=== PATIENT | female | born 1940 | race Caucasian/White ===

== ENCOUNTER 2016-04-14 09:25 | Outpatient (RCR) | payer OTHER ==
[~2016-04-14] VITALS: Ht 154.9 cm; Wt 67.6 kg
[2016-04-14 10:03] VITALS: BP 178/72
[2016-04-14 12:19] VITALS: BP 178/72
[2016-04-14 12:25] VITALS: BP 178/72
== END 2016-07-13 | disposition home or self-care (01) ==
LOC: LAB 09:25 → SDC 09:25 → EDSTATUS 04-15 07:32
PROVIDERS: ATTEND Family Medicine
DX: D64.9 Anemia, unspecified (principal)
CPT/HCPCS: 36415; 82274; 85025

== ENCOUNTER 2016-04-14 09:47 | Outpatient (RCR) | payer OTHER ==
[2016-04-13 15:48] VITALS: BP 153/68
[2016-04-13 17:20] VITALS: BP 153/68
[2016-04-13 17:35] VITALS: BP 168/69
[2016-04-13 19:15] VITALS: BP 175/62
[~2016-04-14] VITALS: Ht 154.9 cm; Wt 67.6 kg
[~2016-04-14 09:47] MED LIST: ACETAMINOPHEN 325 MG TABLET/CAPLET (TYLENOL) ONE; ACETAMINOPHEN 325 MG TABLET/CAPLET (TYLENOL) PO ONE; NS IV 500 ML 500 ML IV ONE; NS IV 500 ML 500 ML ONE; diphenhydrAMINE 25 MG TAB (BENADRYL) PO ONE
[2016-04-14 11:43] LABS: BASOPHILS % (AUTO) 1 % (0-10); EOSINOPHILS # (AUTO) 0.3 10^3/uL (0.0-0.3); EOSINOPHILS % (AUTO) 4 % (0-10); LYMPHOCYTES # (AUTO) 1.6 X 10^3 (1.0-4.0); LYMPHOCYTES % (AUTO) 24 % (12-44); MEAN CORPUSCULAR HEMOGLOBIN 22 PG (25-34); MEAN CORPUSCULAR HGB CONC 30 G/DL (32-36); MEAN CORPUSCULAR VOLUME 74 FL (80-99); MEAN PLATELET VOLUME 8.9 FL (7.4-10.4); MONOCYTES # (AUTO) 0.8 X 10^3 (0.0-1.0); MONOCYTES % (AUTO) 12 % (0-12); NEUTROPHILS # (AUTO) 4.1 X 10^3 (1.8-7.8); NEUTROPHILS % (AUTO) 60 % (42-75); PLATELET COUNT 391 10^3/uL (130-400); RED BLOOD COUNT 3.92 10^6/uL (4.35-5.85); RED CELL DISTRIBUTION WIDTH 20.9 % (10.0-14.5); WHITE BLOOD COUNT 6.8 10^3/uL (4.3-11.0)
== END 2016-07-12 | disposition home or self-care (01) ==
LOC: SDC 09:47
PROVIDERS: ATTEND Family Medicine
DX: D64.9 Anemia, unspecified (principal)
CPT/HCPCS: 36415; 36430; 85025; 86850; 86900; 86901; 86920

== ENCOUNTER → 2020-10-31 | Outpatient (CLI) | payer OTHER | LOC: CANPRECLI → LABNPT 05:42 | PROVIDERS: ATTEND Family Medicine | DX: Z53.9 Procedure and treatment not carried out, unspecified reason (principal) ==

== ENCOUNTER → 2020-11-03 | Outpatient (CLI) | payer MEDICARE, OTHER | LOC: LABNPT 07:58 | PROVIDERS: ATTEND Internal Medicine Gastroenterology | DX: Z01.812 Encounter for preprocedural laboratory examination (principal); Z20.822 Contact with and (suspected) exposure to COVID-19 | CPT/HCPCS: 87635 ==

== ENCOUNTER → 2020-11-25 | Outpatient (CLI) | payer MEDICARE, OTHER ==
--- NOTE | 2020-11-25 11:12 | Diagnostic Imaging Report ---
INDICATION: 80-year-old postmenopausal female. COMPARISON: None FINDINGS: AP Spine L1-L4: [BMD (g/cm2): 1.190] [T-Score: -0.1] [Z-Score: 1.8] [BMD Previous: NA] [BMD % Change: NA] LT Hip Neck: [BMD (g/cm2): 0.901] [T-Score: -1.0] [Z-Score: 1.2] LT Hip Total: [BMD (g/cm2):0.983] [T-Score:-0.2] [Z-Score: 1.8] [BMD Previous: NA] [BMD % Change: NA] RT Hip Neck: [BMD (g/cm2):0.978] [T-Score:-0.4] [Z-Score:1.7] RT Hip Total: [BMD (g/cm2):0.988] [T-score:-0.2] [Z-Score:1.9] [BMD Previous:NA] [BMD % Change:NA] *Indicates significant change from prior examination based on 95% confidence level. World Health Organization criteria for BMD interpretation classify patients as Normal (T-score at or above -1.0), Osteopenic (T-score between -1.0 and -2.5) or Osteoporotic (T-score at or below -2.5). LIMITATIONS AND MODIFICATION: None. IMPRESSION: 1. Normal bone mineral density. 2. Baseline examination. 3. See below National Osteoporosis Foundation guidelines on when to potentially initiate pharmacologic therapy. Based on the National Osteoporosis Foundation Guidelines, pharmacologic treatment should be initiated in any of the following, unless clinical conditions suggest otherwise: * Any patient with prior fragility fracture of the hip or vertebrae. A spine fracture indicates 5X risk for subsequent spine fracture and 2X risk for subsequent hip fracture. * Osteoporosis (T-score <-2.5). * Postmenopausal women and men age 50 and older with low bone mass/osteopenia (T-score between -1.0 and -2.5) by DXA and 10-year major osteoporotic fracture greater than 20% or a 10-year probability of hip fracture greater than 3%. These fracture risks are supplied above in the FRAX score, if applicable. * Clinician judgement and/or patient preferences may indicate treatment for people with 10-year fracture probabilities above or below these levels. Dictated by: Dictated on workstation # [id number]
== END ==
LOC: RAD 08:30
PROVIDERS: ATTEND Family Medicine
DX: S82.91XA Unspecified fracture of right lower leg, initial encounter for closed fracture (principal); Z78.0 Asymptomatic menopausal state
CPT/HCPCS: 77080

== ENCOUNTER → 2021-02-26 | Outpatient (CLI) | payer MEDICARE ==
[2021-02-26 10:49] LABS: HEMATOCRIT 39 % (35-52); HEMOGLOBIN 12.9 g/dL (11.5-16.0); MEAN CORPUSCULAR HEMOGLOBIN 33 pg (25-34); MEAN CORPUSCULAR HGB CONC 33 g/dL (32-36); MEAN CORPUSCULAR VOLUME 100 fL (80-99); MEAN PLATELET VOLUME 8.9 fL (9.0-12.2); PLATELET COUNT 242 10^3/uL (130-400)
--- NOTE | 2021-02-26 11:58 | Diagnostic Imaging Report ---
Indication: Right leg pain. TIME OF EXAM: 10:57 AM No prior studies are available for comparison. There is intramedullary mauro transfixing a midshaft tibial fracture. Fracture line does remain partly visible may be secondary to incomplete healing. The mauro does extend through the ankle joint into the talus and calcaneus. There are proximal and distal screws. The distal fibula has been resected. Alignment at the knee and ankle appears normal. IMPRESSION: Postsurgical changes. There is some residual of fracture line present in the mid shaft of the tibia consistent with incomplete healing. No other significant abnormality is seen. Dictated by: Dictated on workstation # [id number]
== END ==
LOC: RAD 10:20
PROVIDERS: ATTEND Family Medicine
DX: S82.291A Other fracture of shaft of right tibia, initial encounter for closed fracture (principal); D64.9 Anemia, unspecified; Z98.890 Other specified postprocedural states; X58.XXXA Exposure to other specified factors, initial encounter
CPT/HCPCS: 36415; 73590; 85027

== ENCOUNTER 2022-06-21 06:51 | Observation (INO) | payer MEDICARE ==
[~2022-06-21] VITALS: Ht 154 cm; Wt 24.5 kg
--- NOTE | 2022-06-21 07:18 | ED Abdominal Pain ---
General Chief Complaint: Abdominal/GI Problems Stated Complaint: ABD PAIN Nursing Triage Note: ARRIVED VIA WC WITH COMPLAINTS OF LOWER ABD PAIN RELATED TO A HERNIA. History of Present Illness Date Seen by Provider: Jun 21, 2022 Time Seen by Provider: 07:16 Initial Comments 81-year-old female with PMH of thyroid disorder/hiatal hernia/abdominal hernia/HTN, is here with complaints of left lower quadrant pain and swelling which extends into her pelvic area. Patient states that the pain started about 2 to 3 days ago and has been worsening, and the hernia swelling has gotten a little bit bigger. Today patient noticed that she is able to urinate but had as to push to get the urine out. Denies fever, hematuria, diarrhea, constipation, fever. Patient's last meal was yesterday night dinnertime, she had soup. Allergies and Home Medications Allergies Coded Allergies: No Known Drug Allergies (Unverified , 04/13/16) Patient Home Medication List Home Medication List Reviewed: Yes No Active Prescriptions or Reported Meds Review of Systems Review of Systems Constitutional: no symptoms reported EENTM: No Symptoms Reported Respiratory: No Symptoms Reported Cardiovascular: No Symptoms Reported Gastrointestinal: Abdomen Distended, Abdominal Pain, Nausea Genitourinary: No Symptoms Reported Musculoskeletal: no symptoms reported Skin: no symptoms reported Psychiatric/Neurological: No Symptoms Reported Endocrine: No Symptoms Reported Hematologic/Lymphatic: No Symptoms Reported Past Jvntalr-Bnocyb-Eanhhf Hx Patient Social History Tobacco Use?: No Substance use?: No Alcohol Use?: No Immunizations Up To Date Tetanus Booster (TDap): Unknown Seasonal Allergies Seasonal Allergies: No Past Medical History Surgeries: Yes Appendectomy, Orthopedic Respiratory: No Cardiac: Yes High Cholesterol, Hypertension Neurological: No Genitourinary: No Gastrointestinal: Yes Abdominal Hernia Musculoskeletal: Yes Fractures Endocrine: No HEENT: No Cancer: No Psychosocial: No Integumentary: No Blood Disorders: No Family Medical History Other Conditions/Hx Physical Exam Vital Signs Vital Signs - First Documented 06/21/22 06:56 Temp 36.1 Pulse 71 Resp 16 B/P (MAP) 122/75 (91) Pulse Ox 98 O2 Delivery Room Air Capillary Refill : Less Than 3 Seconds Height/Weight/BMI Height: 5'1.00" Weight: 149lbs. 0.0oz. 67.913944hs; 24.00 BMI Method: General Appearance: WD/WN, no apparent distress HEENT: PERRL/EOMI, normal ENT inspection Neck: non-tender, full range of motion, supple Respiratory: chest non-tender, lungs clear, normal breath sounds, no respiratory distress Cardiovascular: regular rate, rhythm, no edema Gastrointestinal: normal bowel sounds, soft, tenderness (Tenderness in the elbow acute which extends into the pelvic area), mass (Mass in the LL Q with an even larger mass in the pelvic area which appears to be a continuation. Mass is large, soft, tender) Back: no CVA tenderness Male: other Neurologic/Psychiatric: alert, normal mood/affect, oriented x 3 Skin: normal color Lymphatic: no adenopathy Focused Exam Lactate Level 06/21/22 08:08: Lactic Acid Level 0.90 Lactic Acid Level Laboratory Tests Test 06/21/22 08:08 Lactic Acid Level 0.90 MMOL/L (0.50-2.00) Progress/Results/Core Measures Results/Orders Lab Results Laboratory Tests Test 06/21/22 08:08 06/21/22 08:35 Range/Units White Blood Count 10.2 4.3-11.0 10^3/uL Red Blood Count 4.30 3.80-5.11 10^6/uL Hemoglobin 13.4 11.5-16.0 g/dL Hematocrit 40 35-52 % Mean Corpuscular Volume 94 80-99 fL Mean Corpuscular Hemoglobin 31 25-34 pg Mean Corpuscular Hemoglobin Concent 33 32-36 g/dL Red Cell Distribution Width 13.2 10.0-14.5 % Platelet Count 287 130-400 10^3/uL Mean Platelet Volume 8.9 L 9.0-12.2 fL Immature Granulocyte % (Auto) 0 % Neutrophils (%) (Auto) 77 H 42-75 % Lymphocytes (%) (Auto) 15 12-44 % Monocytes (%) (Auto) 8 0-12 % Eosinophils (%) (Auto) 0 0-10 % Basophils (%) (Auto) 0 0-10 % Neutrophils # (Auto) 7.8 1.8-7.8 10^3/uL Lymphocytes # (Auto) 1.5 1.0-4.0 10^3/uL Monocytes # (Auto) 0.8 0.0-1.0 10^3/uL Eosinophils # (Auto) 0.0 0.0-0.3 10^3/uL Basophils # (Auto) 0.0 0.0-0.1 10^3/uL Immature Granulocyte # (Auto) 0.0 0.0-0.1 10^3/uL Sodium Level 136 135-145 MMOL/L Potassium Level 3.6 3.6-5.0 MMOL/L Chloride Level 100 98-107 MMOL/L Carbon Dioxide Level 26 21-32 MMOL/L Anion Gap 10 5-14 MMOL/L Blood Urea Nitrogen 19 H 7-18 MG/DL Creatinine 0.72 0.60-1.30 MG/DL Estimat Glomerular Filtration Rate 84 BUN/Creatinine Ratio 26 Glucose Level 110 H 70-105 MG/DL Lactic Acid Level 0.90 0.50-2.00 MMOL/L Calcium Level 10.6 H 8.5-10.1 MG/DL Corrected Calcium 10.6 H 8.5-10.1 MG/DL Magnesium Level 1.7 1.6-2.4 MG/DL Total Bilirubin 0.6 0.1-1.0 MG/DL Aspartate Amino Transf (AST/SGOT) 13 5-34 U/L Alanine Aminotransferase (ALT/SGPT) 15 0-55 U/L Alkaline Phosphatase 77 40-136 U/L Total Protein 6.6 6.4-8.2 GM/DL Albumin 4.0 3.2-4.5 GM/DL Lipase 14 8-78 U/L Urine Color YELLOW Urine Clarity CLEAR Urine pH 6.0 5-9 Urine Specific [place] 1.025 H 1.016-1.022 Urine Protein NEGATIVE NEGATIVE Urine Glucose (UA) NEGATIVE NEGATIVE Urine Ketones 1+ H NEGATIVE Urine Nitrite NEGATIVE NEGATIVE Urine Bilirubin 1+ H NEGATIVE Urine Urobilinogen 0.2 < = 1.0 MG/DL Urine Leukocyte Esterase 1+ H NEGATIVE Urine RBC (Auto) NEGATIVE NEGATIVE Urine RBC NONE /HPF Urine WBC 2-5 /HPF Urine Squamous Epithelial Cells 2-5 /HPF Urine Crystals PRESENT H /LPF Urine Amorphous Sediment RARE STEPHANIE URATES H /LPF Urine Bacteria FEW H /HPF Urine Casts PRESENT /LPF Urine Hyaline Casts 2-5 H /LPF Urine Mucus SMALL H /LPF Urine Culture Indicated YES My Orders Orders - GEMMA PARKS MD Ondansetron Injection (Zofran Injectio (06/21/22 07:30) Cbc With Automated Diff (06/21/22 07:24) Comprehensive Metabolic Panel (06/21/22 07:24) Lactic Acid Analyzer (06/21/22 07:24) Lipase (06/21/22 07:24) Magnesium (06/21/22 07:24) Ua Culture If Indicated (06/21/22 07:24) Ed Iv/Invasive Line Start (06/21/22 07:24) Ns Iv 1000 Ml (Sodium Chloride 0.9%) (06/21/22 07:24) Ct Abdomen/Pelvis W (06/21/22 07:25) Fentanyl Inj (Sublimaze Injection) (06/21/22 08:45) Iohexol Injection (Omnipaque 350 Mg/Ml 1 (06/21/22 09:00) Received Contrast (Hold Metformin- Contr (06/21/22 09:00) Sodium Chloride Flush (Catheter Flush Sy (06/21/22 09:00) Ns (Ivpb) (Sodium Chloride 0.9% Ivpb Bag (06/21/22 09:00) Urine Culture (06/21/22 08:35) Medications Given in ED Current Medications Medications Dose Ordered Sig/[place] Route Start Time Stop Time Status Last Admin Dose Admin Fentanyl Citrate 50 mcg ONCE ONCE IVP 06/21/22 08:45 06/21/22 08:46 DC 06/21/22 08:48 50 MCG Iohexol 100 ml ONCE ONCE IV 06/21/22 09:00 06/21/22 09:01 DC 06/21/22 09:15 67 ML Ondansetron HCl 4 mg ONCE ONCE IVP 06/21/22 07:30 06/21/22 07:31 DC 06/21/22 07:52 4 MG Sodium Chloride 10 ml NEEDED PRN IV 06/21/22 09:00 06/21/22 09:15 10 ML Sodium Chloride 100 ml ONCE ONCE IV 06/21/22 09:00 06/21/22 09:01 DC 06/21/22 09:15 80 ML Vital Signs/I&O 06/21/22 06:56 Temp 36.1 Pulse 71 Resp 16 B/P (MAP) 122/75 (91) Pulse Ox 98 O2 Delivery Room Air Blood Pressure Mean: 91 Progress Progress Note : Progress Note 1. SMALL BOWEL OBSTRUCTION: -CT ABD: - Labs unremarkable - Fentanyl 50mcg STAT - Zofran 4mg iv - IVF -NPO -We will admit to surgery, discussed with Dr. Bernal and Dr RON 2. AUTE CYSTITIS: - UA is positive for LE/ bacteria - Ceftriaxone 1g, iv STAT - NS IVF Diagnostic Imaging Diagonstic Imaging: CT Plain Films/CT/US/NM/MRI: abdomen Comments [facility]. [place], [place] NAME: DEBBIE ESPAÑA [facility] REC#: [id number] PT STATUS: REG ER : 1940 PHYSICIAN: GEMMA PARKS MD ADMIT DATE: 06/21/22/ER Draft Date of Exam:06/21/22 CT ABDOMEN/PELVIS W PROCEDURE: CT abdomen and pelvis with contrast. TECHNIQUE: Multiple contiguous axial images were obtained through the abdomen and pelvis after administration of intravenous contrast. Auto Exposure Controls were utilized during the CT exam to meet ALARA standards for radiation dose reduction. All CT scans use one or more of the following dose optimizing techniques: automated exposure control, MA and/or KvP adjustment based on patient size and exam type or iterative reconstruction. INDICATION: Lower abdominal pain. Comparison is made with prior CT from 07/20/2020. Imaging through the lung bases demonstrates a very large hiatal hernia. The liver and gallbladder are unremarkable. There is no biliary ductal dilatation. No liver mass is detected. The pancreas and spleen are unremarkable. No adrenal mass is identified. The kidneys contain low-attenuation lesions consistent with cysts. There is a large left lower quadrant hernia containing small and large bowel loops. The small bowel loops do appear to be dilated and fluid-filled and findings are concerning for at least partial small bowel obstruction. No bowel wall thickening or pneumatosis is seen. There is no discrete fluid collection. Aorta is nonaneurysmal. The uterus contains large calcified fibroid. Bladder is unremarkable. IMPRESSION: 1. Large left inguinal hernia containing small and large bowel loops. Small bowel does appear to be dilated and fluid-filled and features are concerning for small bowel obstruction. No definite strangulation is seen. There is no abscess formation identified. 2. Bilateral renal cysts. 3. Large hiatal hernia. Dictated on workstation # [id number] Dict: 06/21/2238 Trans: 06/21/22 0948 [facility] [id number] Interpreted by: CHRISTIN MCCARTHY MD Electronically signed by: Departure Communication (Admissions) Time/Spoke to Admitting Phy: 10:[address] Powers and accepted to surgery Impression Primary Impression: Small bowel obstruction Additional Impression: Acute cystitis Qualified Codes: N30.00 - Acute cystitis without hematuria Disposition: 30 STILL A PATIENT Condition: Stable Admissions Decision to Admit Reason: Admit from ER (General) Decision to Admit/Date: Jun 21, 2022 Time/Decision to Admit Time: 10:00 Departure-Patient Inst. Referrals: JACKLYN GUALLPA DO (PCP/Family) Primary Care Physician Scripts No Active Prescriptions or Reported Meds GEMMA PARKS MD Jun 21, 2022 07:18
[2022-06-21] MEDS ORDERED: NS IV 1000 ML 1,000 ML IV STA (07:24)
[2022-06-21] MEDS ORDERED: ONDANSETRON 4 MG/2 ML (SDV) Z0FRAN IVP ONE (07:30)
[2022-06-21 08:22] LABS: BASOPHILS % (AUTO) 0 % (0-10); EOSINOPHILS % (AUTO) 0 % (0-10); HEMATOCRIT 40 % (35-52); HEMOGLOBIN 13.4 g/dL (11.5-16.0); LYMPHOCYTES # (AUTO) 1.5 10^3/uL (1.0-4.0); LYMPHOCYTES % (AUTO) 15 % (12-44); MEAN CORPUSCULAR HEMOGLOBIN 31 pg (25-34); MEAN CORPUSCULAR HGB CONC 33 g/dL (32-36); MEAN CORPUSCULAR VOLUME 94 fL (80-99); MEAN PLATELET VOLUME 8.9 fL (9.0-12.2); MONOCYTES # (AUTO) 0.8 10^3/uL (0.0-1.0); MONOCYTES % (AUTO) 8 % (0-12); NEUTROPHILS # (AUTO) 7.8 10^3/uL (1.8-7.8); NEUTROPHILS % (AUTO) 77 % (42-75); PLATELET COUNT 287 10^3/uL (130-400); WHITE BLOOD COUNT 10.2 10^3/uL (4.3-11.0)
[2022-06-21 08:40] LABS: BILIRUBIN,TOTAL 0.6 MG/DL (0.1-1.0); CALCIUM 10.6 MG/DL (8.5-10.1); CREATININE SERUM 0.72 MG/DL (0.60-1.30); MAGNESIUM 1.7 MG/DL (1.6-2.4); POTASSIUM 3.6 MMOL/L (3.6-5.0); TOTAL PROTEIN 6.6 GM/DL (6.4-8.2)
[2022-06-21 08:41] LABS: CLARITY,URINE CLEAR; COLOR,URINE YELLOW; GLUCOSE, URINE (UA) NEGATIVE (NEGATIVE); KETONES,URINE 1+ (NEGATIVE); LEUKOCYTE ESTERASE ,URINE 1+ (NEGATIVE); NITRITE,URINE NEGATIVE (NEGATIVE); PROTEIN,URINE NEGATIVE (NEGATIVE)
[2022-06-21] MEDS ORDERED: fentaNYL INJ 100 MCG/2 ML AMP IVP ONE (08:45)
[2022-06-21] MEDS ORDERED: IOHEXOL 350 MG/ML 100 ML (OMNIPAQUE 350) VIAL IV ONE (09:00)
[2022-06-21] MEDS ORDERED: NS 100 ML (IVPB) BAG IV ONE (09:00)
[2022-06-21] MEDS ORDERED: CATHETER FLUSH 10 ML SYR IV PRN ×2 (09:00→12:00)
[2022-06-21] MEDS ORDERED: HOLD METFORMIN - RECEIVED CONTRAST 20 ML VIAL IV SCH (09:00)
[2022-06-21 09:33] LABS: BACTERIA,URINE FEW /HPF; BILIRUBIN,URINE 1+ (NEGATIVE)
[2022-06-21 09:34] LABS: AMORPHOUS SEDIMENT,UR RARE AMOR URATES /LPF
--- NOTE | 2022-06-21 09:48 | Diagnostic Imaging Report ---
PROCEDURE: CT abdomen and pelvis with contrast. TECHNIQUE: Multiple contiguous axial images were obtained through the abdomen and pelvis after administration of intravenous contrast. Auto Exposure Controls were utilized during the CT exam to meet ALARA standards for radiation dose reduction. All CT scans use one or more of the following dose optimizing techniques: automated exposure control, MA and/or KvP adjustment based on patient size and exam type or iterative reconstruction. INDICATION: Lower abdominal pain. Comparison is made with prior CT from 07/20/2020. Imaging through the lung bases demonstrates a very large hiatal hernia. The liver and gallbladder are unremarkable. There is no biliary ductal dilatation. No liver mass is detected. The pancreas and spleen are unremarkable. No adrenal mass is identified. The kidneys contain low-attenuation lesions consistent with cysts. There is a large left lower quadrant hernia containing small and large bowel loops. The small bowel loops do appear to be dilated and fluid-filled and findings are concerning for at least partial small bowel obstruction. No bowel wall thickening or pneumatosis is seen. There is no discrete fluid collection. Aorta is nonaneurysmal. The uterus contains large calcified fibroid. Bladder is unremarkable. IMPRESSION: 1. Large left inguinal hernia containing small and large bowel loops. Small bowel does appear to be dilated and fluid-filled and features are concerning for small bowel obstruction. No definite strangulation is seen. There is no abscess formation identified. 2. Bilateral renal cysts. 3. Large hiatal hernia. Dictated by: Dictated on workstation # [id number]
[2022-06-21] MEDS ORDERED: cefTRIAXone 1 GM PRE-MIX 50 ML IV STA (10:15)
[2022-06-21 11:42] VITALS: BP 160/87
[2022-06-21] MEDS ORDERED: KETOROLAC 15 MG/ML VIAL IVP PRN (12:00)
[2022-06-21] MEDS ORDERED: ONDANSETRON 4 MG/2 ML (SDV) Z0FRAN IVP PRN (12:00)
[2022-06-21 12:17] VITALS: BP 160/87
--- NOTE | 2022-06-21 12:39 | Consultation - Surgery ---
ALFREDOSINTIA Britton 06/21/22 1239: History of Present Illness History of Present Illness Patient Consulted On(konstantin/time) 06/21/22 12:34 Date Seen by Provider: Jun 21, 2022 Time Seen by Provider: 10:45 History of Present Illness 81 yo F with h/o umbilical hernia surgery, GI bleed, HTN, and RA was admitted after presenting to the ED with new onset epigastric abd pain with radiation to L lumbar with associated nausea and vomiting that started ~3 days ago. Pt states that 3 days ago, she experienced sudden onset of diffuse, constant, 6/10 abd pain. Pt also notes associated nausea and vomiting that started yesterday, stating that she vomited once and then was dry heaving. Pt states she took tylenol (1 tab) and tramadol and had no relief, prompting her to come to the ED. In ED, pt had a UA showing bacteria and a CT abd/pelvis that showed a large left inguinal hernia containing small and large bowel loops as well as dilated and fluid filled loops of small bowel that was concerning for small bowel obstruction. In room, pt resting in bed comfortably with daughter at bedside. Pt rates her pain a 6/10 at rest and a 10/10 when laying flat on her back or with movement. Pt states that she feels like her hernia feels more swollen today, but denies any redness to the area. Pt states that her last BM was 3 days ago prior to the onset of her symptoms. Pt states that it was normal and denies any blood or melena. Pt does state that she did continue to have a small amount of flatus up until yesterday. Pt notes that she has been feeling more weak since the beginning of her symptoms. Pt otherwise has no complaints. Pt's last colonoscopy and EGD was Aug in [place] following a GI bleed. Pt states that it was "normal". Pt also states that she had a capsule endoscopy at that time. Pt states that her inguinal hernia has been present since 2020 and was told it was inoperative. Pt's last meal was yesterday evening. Pt denies abd distention, CP, SOB, diarrhea, cough, lightheadedness, FIGUEROA, hematuria, cough ground emesis or hematemesis. Allergies and Home Medications Allergies Coded Allergies: No Known Drug Allergies (Unverified , 04/13/16) Patient Home Medication List Home Medication List Reviewed: Yes (Levothyroxine 100mcg, Amlodipine 5mg, Diclofenac 50mg BID, Tramadol 50mgBID) No Active Prescriptions or Reported Meds Past Uzgmdrq-Sohzqx-Tzkfsp Hx Patient Social History Drug of Choice: Denies Drug use Smoking Status: Former Smoker Recent Hopitalizations: No Alcohol Use?: No Have you traveled recently?: No Immunizations Up To Date Tetanus Booster (TDap): Unknown Seasonal Allergies Seasonal Allergies: No Surgeries History of Surgeries: Yes Surgeries: Abdominal (umbilical hernia repair), Appendectomy, Orthopedic Respiratory History of Respiratory Disorde: No Cardiovascular History of Cardiac Disorders: Yes Cardiac Disorders: High Cholesterol, Hypertension Neurological History of Neurological Disord: No Genitourinary History of Genitourinary Disor: No Gastrointestinal History of Gastrointestinal Di: Yes Gastrointestinal Disorders: Abdominal Hernia (large left inguinal), Gastrointestinal Bleed Musculoskeletal History of Musculoskeletal Dis: Yes Musculoskeletal Disorders: Rheumatoid Arthritis, Fractures Endocrine History of Endocrine Disorders: Yes Endocrine Disorders: Hypothyroidsim HEENT History of HEENT Disorders: No Cancer History of Cancer: No Psychosocial History of Psychiatric Problem: No Integumentary History of Skin or Integumenta: No Blood Transfusions History of Blood Disorders: No Family Medical History Significant Family History: Cancer (brother: lung cx; sister: endometrial with mets to kidney), Hypertension (mother), Other Conditions/Hx (RA-mother) Review of Systems-General Constitutional: No chills, No diaphoresis EENTM: No ear discharge, No ear pain Respiratory: No cough, No dyspnea on exertion, No short of breath Cardiovascular: No chest pain, No edema Gastrointestinal: abdominal pain (diffuse); No hematemesis, No melena; nausea, vomiting Genitourinary: No decreased output, No discharge Musculoskeletal: back pain (radiation from abd ); No neck pain Skin: No change in color, No change in hair/nails Psychiatric/Neurological: Denies Anxiety, Denies Depressed Physical Exam-General Problems Physical Exam Vital Signs Vital Signs - First Documented 06/21/22 06:56 Temp 36.1 Pulse 71 Resp 16 B/P (MAP) 122/75 (91) Pulse Ox 98 O2 Delivery Room Air Capillary Refill : Less Than 3 Seconds General Appearance: WD/WN, no apparent distress HEENT: PERRL/EOMI Respiratory: lungs clear, normal breath sounds, no respiratory distress, no accessory muscle use Cardiovascular: regular rate, rhythm, no murmur Peripheral Pulses: 2+ Dorsalis Pedis (R), 2+ Left Dors-Pedis (L) Gastrointestinal: abnormal bowel sounds (hyperactive all quadrants), tenderness (diffuse), hernia (large left inguinal hernia) Back: No muscle spasm Extremities: no pedal edema, no calf tenderness Neurologic/Psychiatric: alert, oriented x 3 Skin: normal color, warm/dry Data Review Labs Laboratory Tests 06/21/22 08:08: White Blood Count 10.2, Red Blood Count 4.30, Hemoglobin 13.4, Hematocrit 40, Mean Corpuscular Volume 94, Mean Corpuscular Hemoglobin 31, Mean Corpuscular Hemoglobin Concent 33, Red Cell Distribution Width 13.2, Platelet Count 287, Mean Platelet Volume 8.9L, Immature Granulocyte % (Auto) 0, Neutrophils (%) (Auto) 77H, Lymphocytes (%) (Auto) 15, Monocytes (%) (Auto) 8, Eosinophils (%) (Auto) 0, Basophils (%) (Auto) 0, Neutrophils # (Auto) 7.8, Lymphocytes # (Auto) 1.5, Monocytes # (Auto) 0.8, Eosinophils # (Auto) 0.0, Basophils # (Auto) 0.0, Immature Granulocyte # (Auto) 0.0, Sodium Level 136, Potassium Level 3.6, Chloride Level 100, Carbon Dioxide Level 26, Anion Gap 10, Blood Urea Nitrogen 19H, Creatinine 0.72, Estimat Glomerular Filtration Rate 84, BUN/Creatinine Ratio 26, Glucose Level 110H, Lactic Acid Level 0.90, Calcium Level 10.6H, Corrected Calcium 10.6H, Magnesium Level 1.7, Total Bilirubin 0.6, Aspartate Amino Transf (AST/SGOT) 13, Alanine Aminotransferase (ALT/SGPT) 15, Alkaline Phosphatase 77, Total Protein 6.6, Albumin 4.0, Lipase 14 06/21/22 08:35: Urine Color YELLOW, Urine Clarity CLEAR, Urine pH 6.0, Urine Specific [place] 1.025H, Urine Protein NEGATIVE, Urine Glucose (UA) NEGATIVE, Urine Ketones 1+H, Urine Nitrite NEGATIVE, Urine Bilirubin 1+H, Urine Urobilinogen 0.2, Urine Leukocyte Esterase 1+H, Urine RBC (Auto) NEGATIVE, Urine RBC NONE, Urine WBC 2- 5, Urine Squamous Epithelial Cells 2-5, Urine Crystals PRESENTH, Urine Amorphous Sediment RARE STEPHANIE URATESH, Urine Bacteria FEWH, Urine Casts PRESENT, Urine Hyaline Casts 2-5H, Urine Mucus SMALLH, Urine Culture Indicated YES Radiology Date of Exam:06/21/22 CT ABDOMEN/PELVIS W PROCEDURE: CT abdomen and pelvis with contrast. TECHNIQUE: Multiple contiguous axial images were obtained through the abdomen and pelvis after administration of intravenous contrast. Auto Exposure Controls were utilized during the CT exam to meet ALARA standards for radiation dose reduction. All CT scans use one or more of the following dose optimizing techniques: automated exposure control, MA and/or KvP adjustment based on patient size and exam type or iterative reconstruction. INDICATION: Lower abdominal pain. Comparison is made with prior CT from 07/20/2020. Imaging through the lung bases demonstrates a very large hiatal hernia. The liver and gallbladder are unremarkable. There is no biliary ductal dilatation. No liver mass is detected. The pancreas and spleen are unremarkable. No adrenal mass is identified. The kidneys contain low-attenuation lesions consistent with cysts. There is a large left lower quadrant hernia containing small and large bowel loops. The small bowel loops do appear to be dilated and fluid-filled and findings are concerning for at least partial small bowel obstruction. No bowel wall thickening or pneumatosis is seen. There is no discrete fluid collection. Aorta is nonaneurysmal. The uterus contains large calcified fibroid. Bladder is unremarkable. IMPRESSION: 1. Large left inguinal hernia containing small and large bowel loops. Small bowel does appear to be dilated and fluid-filled and features are concerning for small bowel obstruction. No definite strangulation is seen. There is no abscess formation identified. 2. Bilateral renal cysts. 3. Large hiatal hernia. Dictated on workstation # [id number] Dict: 06/21/22 0938 Trans: 06/21/22 0948 [facility] [id number] Interpreted by: CHRISTIN MCCARTHY MD Assessment/Plan Assessment/Plan Assessment/Plan 1. Epigastric pain with radiation to left lumbar 2. Nausea and vomiting 3. Large left inguinal hernia 3. h/o GI bleed 4. Acute cystitis Pt's pain seems to be well controlled on current pain medications. Pt has large incarcerated left inguinal hernia, pt is most likely not a surgical candidate. CT abd/pelvis was suspicious for SBO, would consider conservative management with IV fluids, anti-emetics prn, and pain medications prn. Would consider NG tube if needed for decompression. Continue IV abx. NICK ROSALIA SHEPARD DO 06/21/22 9390: History of Present Illness History of Present Illness Time Seen by Provider: 13:09 History of Present Illness Surgery asked to consult regarding PSBO. HPI per ED: 81-year-old female with PMH of thyroid disorder/hiatal hernia/abdominal hernia/HTN, is here with complaints of left lower quadrant pain and swelling which extends into her pelvic area. Patient states that the pain started about 2 to 3 days ago and has been worsening, and the hernia swelling has gotten a little bit bigger. Today patient noticed that she is able to urinate but had as to push to get the urine out. Denies fever, hematuria, diarrhea, constipation, fever. Patient's last meal was yesterday night dinnertime, she had soup. When I spoke to pt she states she has mild to moderate abdominal pain. She is lying in bed and does not appear to be in any distress. States she has never been told she had bowel obstruction before. She thinks she has had the hernia for at least 12 years. Allergies and Home Medications Allergies Coded Allergies: No Known Drug Allergies (Unverified , 04/13/16) Patient Home Medication List Home Medication List Reviewed: Yes (Levothyroxine 100mcg, Amlodipine 5mg, Diclofenac 50mg BID, Tramadol 50mgBID) No Active Prescriptions or Reported Meds Past Qsumrcl-Eenjjz-Cnycga Hx Patient Social History Smoking Status: Never a Smoker Alcohol Use?: No Surgeries History of Surgeries: Yes Surgeries: Abdominal (umbilical hernia repair), Appendectomy, Orthopedic Respiratory History of Respiratory Disorde: No Cardiovascular History of Cardiac Disorders: Yes Cardiac Disorders: Hypertension Neurological History of Neurological Disord: No Genitourinary History of Genitourinary Disor: No Gastrointestinal History of Gastrointestinal Di: Yes Gastrointestinal Disorders: Abdominal Hernia (large left inguinal), Gastrointestinal Bleed, Hiatal Hernia Musculoskeletal History of Musculoskeletal Dis: No Musculoskeletal Disorders: Rheumatoid Arthritis, Fractures Endocrine History of Endocrine Disorders: Yes Endocrine Disorders: Hypothyroidsim HEENT History of HEENT Disorders: No Cancer History of Cancer: No Psychosocial History of Psychiatric Problem: No Family Medical History Significant Family History: Cancer (brother: lung cx; sister: endometrial with mets to kidney), Hypertension (mother), Other Conditions/Hx (RA-mother) Review of Systems-General Constitutional: No chills, No diaphoresis EENTM: No ear discharge, No ear pain Respiratory: No cough, No dyspnea on exertion, No short of breath Cardiovascular: No chest pain, No edema Gastrointestinal: abdominal pain (diffuse); No hematemesis, No melena; nausea, vomiting Genitourinary: No decreased output, No discharge, No hematuria Musculoskeletal: back pain (radiation from abd ), joint pain, joint swelling; No neck pain Skin: No change in color, No change in hair/nails Psychiatric/Neurological: Denies Anxiety, Denies Depressed Physical Exam-General Problems Physical Exam General Appearance: WD/WN, no apparent distress Eyes: Bilateral Eye PERRL, Bilateral Eye EOMI HEENT: pharynx normal; No scleral icterus (R), No scleral icterus (L) Neck: non-tender, supple Respiratory: lungs clear, normal breath sounds, no respiratory distress, no accessory muscle use Cardiovascular: regular rate, rhythm, no murmur Peripheral Pulses: 2+ Dorsalis Pedis (R), 2+ Left Dors-Pedis (L) Gastrointestinal: soft, abnormal bowel sounds (hyperactive all quadrants), tenderness (diffuse), hernia (large left inguinal hernia, with another one (probably spigelian just above) and right inguinal hernia) Back: no CVA tenderness; No muscle spasm Extremities: no pedal edema, no calf tenderness, other (fingers have ulnar deviation) 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 PSBO vs Ileus 2. Large Incarcerated left inguinal hernia, with Spigelian hernia 3. Hiatal Hernia 4. Acute UTI 5. HTN Pt's pain seems to be under control on current pain medications. Pt has large incarcerated left inguinal hernia, that I was unable to reduce (even with gentle steady pressure and placing pt trendelenber). I reviewed the CT myself and noted bilateral inguinal hernia; left bigger than right with left spigelian hernia and large Hiatal hernia. Radiologist read CT abd/pelvis as suspicious for SBO. Pt looks very comfortable in no distress and would not carbajal her to surgery. In fact, I do not think she is a good surgical candidate. I think she has loss of domain in her abdomen and it would be hard to get intestine back in. In addition, I am not sure how to even repair the hernia because the defect is so big; very high chance of failure even with mesh. Therefore, will plan conservative management with IV fluids, anti-emetics prn, and pain medications prn. Would consider NG tube if needed for decompression. Continue IV abx for the UTI and keep NPO. Supervisory-Addendum Brief Verification & Attestation Participated in pt care: history, MDM, physical Personally performed: exam, history, MDM, supervision of care Care discussed with: Medical Student Procedures: n/a Verification and Attestation of Medical Student E/M Service A medical student performed and documented this service. I then reviewed and verified all information documented by the medical student and made modifications to such information, when appropriate. I personally performed a physical exam, medical decision making and then discussed any differences be tween the notes and made revisions as necessary to create one note. Rosalia Shepard , 06/21/22 , 13:59 SINTIA CARR Jun 21, 2022 12:39 ROSALIA SHEPARD DO Jun 21, 2022 13:50
[2022-06-21] MEDS: NS IV 1000 ML 1,000 ML IV SCH ×2 (14:09→21:06)
[2022-06-21] MEDS: CATHETER FLUSH 10 ML SYR IV SCH ×2 (14:10→21:02)
[2022-06-21] MEDS: fentaNYL INJ 100 MCG/2 ML AMP IVP PRN ×2 (14:10→23:28)
[2022-06-21] MEDS ORDERED: LEVO100T7 PO (15:51)
[2022-06-21] MEDS ORDERED: DICL50TA6 PO (15:51)
[2022-06-21] MEDS ORDERED: AMLO-250 PO (15:51)
[2022-06-21] MEDS ORDERED: MULT-1136 PO (15:51)
[2022-06-21] MEDS ORDERED: ROSU5TAB13 PO (15:51)
[2022-06-21] MEDS ORDERED: TRAM50TA3 PO (15:51)
[2022-06-21 16:12] VITALS: BP 122/59
[2022-06-21 19:47] VITALS: BP 125/75
[2022-06-21 23:49] VITALS: BP 110/58
[2022-06-22 04:00] VITALS: BP 127/59
[2022-06-22] MEDS: CATHETER FLUSH 10 ML SYR IV SCH (04:10)
[2022-06-22] MEDS: NS IV 1000 ML 1,000 ML IV SCH ×3 (04:57→11:25)
[2022-06-22 06:42] LABS: POTASSIUM 3.4 MMOL/L (3.6-5.0)
[2022-06-22 06:43] LABS: CALCIUM 8.4 MG/DL (8.5-10.1)
[2022-06-22 06:44] LABS: BASOPHILS # (AUTO) 0.1 10^3/uL (0.0-0.1); BASOPHILS % (AUTO) 1 % (0-10); EOSINOPHILS # (AUTO) 0.4 10^3/uL (0.0-0.3); EOSINOPHILS % (AUTO) 6 % (0-10); HEMATOCRIT 33 % (35-52); LYMPHOCYTES # (AUTO) 1.6 10^3/uL (1.0-4.0); LYMPHOCYTES % (AUTO) 28 % (12-44); MEAN CORPUSCULAR HEMOGLOBIN 31 pg (25-34); MEAN CORPUSCULAR HGB CONC 33 g/dL (32-36); MEAN CORPUSCULAR VOLUME 96 fL (80-99); MEAN PLATELET VOLUME 9.2 fL (9.0-12.2); MONOCYTES # (AUTO) 0.6 10^3/uL (0.0-1.0); MONOCYTES % (AUTO) 11 % (0-12); NEUTROPHILS # (AUTO) 3.1 10^3/uL (1.8-7.8); NEUTROPHILS % (AUTO) 54 % (42-75); PLATELET COUNT 239 10^3/uL (130-400); WHITE BLOOD COUNT 5.8 10^3/uL (4.3-11.0)
[2022-06-22 06:48] LABS: CREATININE SERUM 0.55 MG/DL (0.60-1.30)
[2022-06-22 06:50] LABS: HEMOGLOBIN 10.7 g/dL (11.5-16.0)
[2022-06-22 07:51] VITALS: BP 134/75
--- NOTE | 2022-06-22 09:33 | Progress Note - Surgery ---
REYMUNDORAFISINTIA Britton 06/22/22 0933: Subjective Date Seen by a Provider: Jun 22, 2022 Time Seen by a Provider: 07:45 Subjective/Events-last exam Pt is laying in bed comfortably. Pt states that she is currently having no abd pain today. Pt denies BM but does note that she has been having a lot of flatus. Pt notes that her abd distention feels like it improved today and is softer upon palpation. Pt denies ambulation except to the restroom. Pt has no complaints at this time. Does inquire about progressing diet and going home today. Pt denies nausea, vomiting, CP, SOB, chills, cough, leg swelling, FIGUEROA, lightheadedness, and hematuria. Review of Systems General: No Chills, No Night Sweats HEENT: No Head Aches, No Eye Pain Pulmonary: No Dyspnea, No Cough Cardiovascular: No: Chest Pain, Palpitations, Lt Headedness Gastrointestinal: No: Nausea, Vomiting, Abdominal Pain Genitourinary: No Dysuria, No Hematuria Musculoskeletal: back pain (arthritis), hand pain (arthritis); No: neck pain Neurological: No: Weakness, Numbness Focused Exam Lactate Level 06/21/22 08:08: Lactic Acid Level 0.90 Objective Exam Vital Signs Date Time Temp Pulse Resp B/P (MAP) Pulse Ox O2 Delivery O2 Flow Rate FiO2 06/22/22 07:51 36.0 95 18 134/75 (94) 93 Room Air 06/22/22 07:07 89 06/22/22 04:00 36.9 98 20 127/59 (81) 90 Room Air 06/22/22 01:00 97 06/21/22 23:49 37.4 103 20 110/58 (75) 91 Room Air 06/21/22 21:20 Room Air 06/21/22 19:47 37.4 94 16 125/75 (92) 96 Room Air 06/21/22 19:00 95 06/21/22 16:12 36.4 97 18 122/59 (80) 94 Room Air 06/21/22 12:49 99 06/21/22 12:17 36.6 102 19 160/87 (111) 96 Room Air 06/21/22 11:47 96 Room Air 06/21/22 11:42 36.6 102 19 160/87 (111) 96 Room Air 06/21/22 11:07 78 16 128/93 96 Room Air I & O 06/22/22 07:00 Intake Total 3000 ml Balance 3000 ml Capillary Refill : Less Than 3 Seconds General Appearance: No Apparent Distress, WD/WN HEENT: PERRL/EOMI Respiratory: Lungs Clear, Normal Breath Sounds, No Accessory Muscle Use, No Respiratory Distress Cardiovascular: Regular Rate, Rhythm, No Murmur Peripheral Pulses: 2+ Dorsalis Pedis (R), 2+ Left Dors-Pedis (L) Gastrointestinal: normal bowel sounds, non tender, soft, tenderness (mild soreness diffusely), hernia (large left inguinal hernia, with another one (probably spigelian just above) and right inguinal hernia- not as firm today, soft to touch and no tenderness) Extremity: No Calf Tenderness, No Pedal Edema, Other (ulnar deviation of fingers) Neurologic/Psychiatric: Alert, Oriented x3 Skin: Normal Color, Warm/Dry Results Lab Laboratory Tests 06/22/22 05:36: White Blood Count 5.8, Red Blood Count 3.41L, Hemoglobin 10.7#L, Hematocrit 33L, Mean Corpuscular Volume 96, Mean Corpuscular Hemoglobin 31, Mean Corpuscular Hemoglobin Concent 33, Red Cell Distribution Width 13.3, Platelet Count 239, Mean Platelet Volume 9.2, Immature Granulocyte % (Auto) 0, Neutrophils (%) (Auto) 54, Lymphocytes (%) (Auto) 28, Monocytes (%) (Auto) 11, Eosinophils (%) (Auto) 6, Basophils (%) (Auto) 1, Neutrophils # (Auto) 3.1, Lymphocytes # (Auto) 1.6, Monocytes # (Auto) 0.6, Eosinophils # (Auto) 0.4H, Basophils # (Auto) 0.1, Immature Granulocyte # (Auto) 0.0, Sodium Level 140, Potassium Level 3.4L, Chloride Level 111#H, Carbon Dioxide Level 21, Anion Gap 8, Blood Urea Nitrogen 11, Creatinine 0.55L, Estimat Glomerular Filtration Rate 92, BUN/Creatinine Ratio 20, Glucose Level 77, Calcium Level 8.4L Assessment/Plan Assessment/Plan Assessment/Plan 1. PSBO vs Ileus 2. Large Incarcerated left inguinal hernia, with Spigelian hernia 3. Hiatal Hernia 4. Acute UTI 5. HTN Pt' pain is much improved today, stating only mild soreness with palpation. Pt's inguinal hernia seems less firm today and is not tender to touch, just mild soreness noted. Abd seems less firm and is diffusely soft to palpation. Would encourage ambulation if pt is able to tolerate and IS use. Would consider progressing diet to small amount of clears if pt is able to tolerate. Continue with IV fluids, anti-emetics prn, and pain medications prn. Would consider DC possibly tomorrow if pt has good BM or flatus and if there is no worsening of abd pain or distention. ROSALIA SHEPARD DO 06/22/22 1155: Subjective Time Seen by a Provider: 11:25 Subjective/Events-last exam Pt seen and examined, she states she feels great and all she can ask is if she can go home. +flatus no BM. Tolerating clears. Review of Systems General: No Chills, No Night Sweats Pulmonary: No Dyspnea, No Cough Cardiovascular: No: Chest Pain, Palpitations Gastrointestinal: No: Nausea, Vomiting, Abdominal Pain Genitourinary: No Dysuria, No Hematuria Objective Exam General Appearance: No Apparent Distress, WD/WN HEENT: PERRL/EOMI Respiratory: Lungs Clear, Normal Breath Sounds, No Accessory Muscle Use, No Respiratory Distress Cardiovascular: Regular Rate, Rhythm, No Murmur Gastrointestinal: soft, tenderness (mild soreness diffusely, improved compared to yesterday), hernia (large left inguinal hernia, with another one (probably spigelian just above) and right inguinal hernia- not as firm today, soft to touch and no tenderness) Neurologic/Psychiatric: Alert, Oriented x3 Skin: Normal Color, Warm/Dry Assessment/Plan Assessment/Plan Assessment/Plan 1. PSBO vs Ileus 2. Large Incarcerated left inguinal hernia, with Spigelian hernia 3. Hiatal Hernia 4. Acute UTI 5. HTN Pt' pain is much improved today, stating only mild soreness with palpation. Pt's inguinal hernia seems less firm today and is not tender to touch, just mild soreness noted. Abd seems less firm and is diffusely soft to palpation. Would encourage ambulation if pt is able to tolerate and IS use. Pt is tolerating clears and will increase to Minced and Moist; can go home if she tolerates this diet. Continue with IV fluids, anti-emetics prn, and pain medications prn. Supervisory-Addendum Brief Verification & Attestation Participated in pt care: history, MDM, physical Personally performed: exam, history, MDM, supervision of care Care discussed with: Medical Student Procedures: n/a Verification and Attestation of Medical Student E/M Service A medical student performed and documented this service. I then reviewed and verified all information documented by the medical student and made modifications to such information, when appropriate. I personally performed a physical exam, medical decision making and then discussed any differences between the notes and made revisions as necessary to create one note. Rosalia Shepard , 06/22/22 , 11:55 SINTIA CARR Jun 22, 2022 09:33 ROSALIA SHEPARD DO Jun 22, 2022 11:55
[2022-06-22] MEDS ORDERED: cefTRIAXone 1 GM IV (PRE-MIX) 50 ML IV SCH (11:00)
[2022-06-22 11:13] VITALS: BP 128/76
--- NOTE | 2022-06-22 14:37 | Discharge Inst-Surgical ---
Discharge Inst-Surgical Depart Medication/Instructions New, Converted or Re-Newed RX: Other (take home meds) Patient Instructions Follow up Appt: Make appointment for 1 week. [phone] Instructions: No lifting greater than 20 pounds. No strenuous activity. May shower in 24 hours, no tub bath or soaking. Use incentive spirometer at home as directed. No Smoking Symptoms to Report: Appetite Changes, Extremity Discoloration, Numbness/Tingling, Swelling Increased, Bleeding Excessive, Eyesight Changes, Pain Increased, Urine Color Change, Constipation(Persistent), Fever over 101 degree F, Pain/Pressure in chest, Urinating Difficulty, Cough Up/Vomit Blood, Heart Beat Irreg/Pounding, Pain/Pressure in jaw, Cramps in feet or legs, Lightheadedness, Pain/Pressure in shoulder, Diarrhea(Persistent), Memory Changes Suddenly, Questions/Concerns, Weight gain consecutive days, Dizziness/Fainting, Nausea/Vomiting, Shortness of Breath, Weight gain over 2 pounds If questions or concerns contact your physician Or seek help at emergency department. Activity Activity as Tolerated: Yes Driving Instructions: You May Drive Diet Discharge Diet: No Restrictions Diet After 24 Hours: Clear Liquid if Nauseous If Any Problems/Questions/Issu: Contact Your Physician, Go to Emergency Room Skin/Wound Care Infection Signs and Symptoms: Increased Swelling, Temperature Above 101 F Bathing Instructions: ROSALIA Curtis DO Jun 22, 2022 14:37
[2022-06-22 15:45] VITALS: BP 138/68
== END 2022-06-22 14:36 | disposition home or self-care (01) ==
LOC: EDUNIT# 06:51 → ER 06:52 → UNDOADMOB 10:00 → 4TH 10:00 → UNDODISOB 06-22 14:36
PROVIDERS: ADMIT Surgery; ATTEND Surgery
DX: K56.609 Unspecified intestinal obstruction, unspecified as to partial versus complete obstruction (principal); K40.30 Unilateral inguinal hernia, with obstruction, without gangrene, not specified as recurrent; K43.9 Ventral hernia without obstruction or gangrene; K44.9 Diaphragmatic hernia without obstruction or gangrene; I10 Essential (primary) hypertension; N30.00 Acute cystitis without hematuria; Z87.891 Personal history of nicotine dependence; Z28.310 Unvaccinated for COVID-19
CPT/HCPCS: 74177; 80048; 80053; 81000; 83605; 83690; 83735; 85025 ×2; 87077; 87088; 96361 ×2; 96366; 96375; 96376; 99282; G0378; 36415

== ENCOUNTER → 2023-05-09 | Outpatient (CLI) | payer MEDICARE ==
[~2023-05-09] MED LIST changes: -ACETAMINOPHEN 325 MG TABLET/CAPLET (TYLENOL) ONE; -ACETAMINOPHEN 325 MG TABLET/CAPLET (TYLENOL) PO ONE; +AMLO-250 PO; +DICL50TA6 PO; +LEVO100T7 PO; +MULT-1136 PO; -NS IV 500 ML 500 ML IV ONE; -NS IV 500 ML 500 ML ONE; +ROSU5TAB13 PO; +TRAM50TA3 PO; -diphenhydrAMINE 25 MG TAB (BENADRYL) PO ONE
--- NOTE | 2023-05-09 13:40 | Diagnostic Imaging Report ---
INDICATION: Palpable lump left breast. No prior mammograms are available for comparison. 2-D and 3-D bilateral diagnostic mammography was performed with CAD. There is a spiculated mass in the upper and outer aspect of the left breast, corresponding to the palpable abnormality. There are benign calcifications in the left breast. No malignant-appearing microcalcifications are seen. Axillae are unremarkable. IMPRESSION: Spiculated mass upper outer left breast at the area of palpable abnormality, highly concerning for neoplasm. Further evaluation with ultrasound is recommended and will be performed today. ACR BI-RADS Category 0: Incomplete. (Needs additional imaging evaluation). Result letter will be mailed to the patient. Note: At least 10% of breast cancer is not imaged by mammography. BI-RADS Category 0 Dictated by: Dictated on workstation # [id number]
--- NOTE | 2023-05-09 16:50 | Diagnostic Imaging Report ---
INDICATION: Palpable mass in the left breast. COMPARISON: Correlation is made with the diagnostic mammogram from earlier this same day. FINDINGS: Sonographic interrogation of the upper outer left breast at the area of palpable abnormality was performed. At the 2 o'clock location 4-5 cm from the nipple, there is an irregular hypoechoic solid appearing mass measuring 11 x 15 x 12 mm. This does show some internal vascularity. No other masses are identified. The left axilla is unremarkable. IMPRESSION: A hypoechoic solid mass at the 2 o'clock location of the left breast corresponds to the mammographic and palpable abnormality. Features are concerning for breast neoplasm and tissue sampling is recommended. This would be amenable to ultrasound-guided core biopsy. ACR BI-RADS Category 4: Suspicious abnormality. Dictated by: Dictated on workstation # [id number]
== END ==
LOC: RAD 12:51
PROVIDERS: ATTEND Family Medicine
DX: N63.21 Unspecified lump in the left breast, upper outer quadrant (principal)
CPT/HCPCS: 76642; 77066; G0279; 77062

== ENCOUNTER → 2023-05-19 | Outpatient (CLI) | payer MEDICARE ==
[~2023-05-19] MED LIST changes: +LIDOCAINE 1% INJ 10 ML VIAL INJ ONE
--- NOTE | 2023-05-19 16:14 | Diagnostic Imaging Report ---
INDICATION: Left breast mass. Patient presents for ultrasound-guided biopsy. Patient brought to the sonographic suite placed on table in the supine position. Ultrasound imaging of the left breast was performed to evaluate appropriate entry site. Left breast was then prepped and draped in the usual sterile fashion. Small amount of 1% lidocaine was utilized for local anesthesia. A total of 4 core biopsies were obtained of the dominant mass at the 2 o'clock location of the left breast utilizing the 14-gauge Achieve needle. A marker clip was then deployed. Hemostasis was obtained. Patient tolerated the procedure well and was sent for postprocedure mammogram on dedicated mammographic equipment. IMPRESSION: Successful ultrasound guided core biopsy of the mass at the 2 o'clock location left breast. Pathology results are currently pending. Dictated by: Dictated on workstation # [id number]
--- NOTE | 2023-05-19 18:13 | Diagnostic Imaging Report ---
INDICATION: Left breast mass. Patient is status post ultrasound-guided left breast biopsy. EXAMINATION: Unilateral left 2D CC and ML mammography was performed after patient underwent ultrasound-guided left breast biopsy. FINDINGS: Images demonstrate a marker clip within the spiculated mass in the upper and outer aspect of the left breast. IMPRESSION: Marker clip placement within the spiculated mass upper in the outer left breast, status post ultrasound-guided biopsy. Dictated by: Dictated on workstation # [id number]
== END ==
LOC: RAD 14:00
PROVIDERS: ATTEND Family Medicine
DX: N63.21 Unspecified lump in the left breast, upper outer quadrant (principal); Z98.82 Breast implant status
CPT/HCPCS: 19083; 77065; A4648; G0279